=== PATIENT | male | born 1975 | race Caucasian/White ===

== ENCOUNTER 2017-07-07 09:45 | Inpatient (IN) | payer OTHER ==
[~2017-07-07] VITALS: Ht 175.3 cm; Wt 69.8 kg
[2017-07-07] VITALS (31 sets, daily range): BP systolic 112–158; BP diastolic 64–93; PULSE 81–116; RESP 9–44; Ht 175.3 cm; Wt 69.8 kg
[~2017-07-07 09:45] MED LIST: CARAS PO; LACT20SO2 PO; LEVE500S8 PO; OMEP40CA6 PO; PANT40TA4 PO; PROP10TA6 PO; RIFA550T4 PO; TRIA0.25 PO
[2017-07-07] MEDS ORDERED: OMEP40CA6 PO (11:38)
[2017-07-07] MEDS ORDERED: LEVE100018 PO (11:39)
[2017-07-07] MEDS ORDERED: ZOLP5TAB PO (11:39)
[2017-07-07] MEDS ORDERED: ATOR10TA65 PO (11:40)
[2017-07-07] MEDS ORDERED: CARAS PO (11:44)
--- NOTE | 2017-07-07 14:08 | HPN ---
Date/Time of Note Date/Time of Note DATE: 07/07/17 TIME: 14:06 Interval H&P Admission Note Pt. seen H&P reviewed: No system changes Neurosurgery Preop Note No significant change Extensive d/w patient about all available options including surgery vs no surgery. Overall risk/complications (3-5%) including but not limited to pneumothorax discussed. Pt Agrees to proceed with T12, L1, L2, L4 Spinoplasty. Dispo: ICU post op REBEKAH SOMMER MD Jul 07, 2017 14:08
[2017-07-07] MEDS ORDERED: MIDAZOLAM 1 MG/ML 2 ML INJ ONE (14:15)
[2017-07-07] MEDS ORDERED: PHENYLephrine (100 MCG/ML) 5ML SYG ONE (15:04)
[2017-07-07] MEDS ORDERED: ROPIVACAINE 0.5 % 30 ML VIAL ONE (15:48)
[2017-07-07] MEDS ORDERED: POLYMYXIN/BACITRACIN 1L IRRIG ONE (15:49)
[2017-07-07] MEDS ORDERED: NEOSTIGMINE 3 MG/3 ML SYRINGE ONE (17:30)
[2017-07-07] MEDS ORDERED: LIDOCAINE 2% (SDV) 5 ML INJ ONE (17:30)
[2017-07-07] MEDS ORDERED: GLYCOPYRROLATE 1 MG INJ ONE (17:30)
[2017-07-07] MEDS ORDERED: PROPOFOL 20 ML ONE (17:30)
[2017-07-07] MEDS ORDERED: ROCURONIUM 50 MG INJ ONE (17:30)
[2017-07-07] MEDS ORDERED: ONDANSETRON 4 MG INJ ONE (17:31)
--- NOTE | 2017-07-07 17:33 | OPPN ---
Date/Time of Note Date/Time of Note DATE: 07/07/17 TIME: 17:31 Operative Report Preoperative Diagnosis T12, L1, L2, L4 compression fx Postoperative Diagnosis same Operation/Procedure Performed T12, L1, L2, L4 Spinoplasty Surgeon see signature line assistant project manager EMMIE Holland, MSN, ACNP-Bc Anesthesia: general Estimated blood loss: 50 - 100 ml's Transfusion Required none Specimen T12, L1, L2, L4 Bone Biopsy Grafts/Implants none Complications none REBEKAH SOMMER MD Jul 07, 2017 17:33
--- NOTE | 2017-07-07 17:33 | OPPN ---
Date/Time of Note Date/Time of Note DATE: 07/07/17 TIME: 17:31 Operative Report Preoperative Diagnosis T12, L1, L2, L4 compression fx Postoperative Diagnosis same Operation/Procedure Performed T12, L1, L2, L4 Spinoplasty Surgeon see signature line librarian assistant EMMIE Holland, MSN, ACNP-Bc Anesthesia: general Estimated blood loss: 50 - 100 ml's Transfusion Required none Specimen T12, L1, L2, L4 Bone Biopsy Grafts/Implants none Complications none REBEKAH SOMMER MD Jul 07, 2017 17:33
--- NOTE | 2017-07-07 17:33 | OPPN ---
Date/Time of Note Date/Time of Note DATE: 07/07/17 TIME: 17:31 Operative Report Preoperative Diagnosis T12, L1, L2, L4 compression fx Postoperative Diagnosis same Operation/Procedure Performed T12, L1, L2, L4 Spinoplasty Surgeon see signature line benefits assistant EMMIE Holland, MSN, ACNP-Bc Anesthesia: general Estimated blood loss: 50 - 100 ml's Transfusion Required none Specimen T12, L1, L2, L4 Bone Biopsy Grafts/Implants none Complications none REBEKAH SOMMER MD Jul 07, 2017 17:33
[2017-07-07] MEDS ORDERED: METOCLOPRAMIDE 10 MG INJ ONE (17:46)
[2017-07-07] MEDS ORDERED: morphine 10 MG INJ ONE (17:47)
[2017-07-07] MEDS ORDERED: LORAZEPAM 2 MG INJ IV PRN (18:00)
[2017-07-07] MEDS ORDERED: FENTAnyl 50 MCG/ML VIAL IV PRN (18:00)
[2017-07-07] MEDS: DOCUSATE SODIUM 100 MG CAP PO SCH ×2 (18:00→21:00)
[2017-07-07] MEDS ORDERED: NACL 0.9% 3 ML SYG IV SCH (18:00)
[2017-07-07] MEDS ORDERED: DIPHENHYDRAMINE 50 MG INJ IV PRN (18:00)
[2017-07-07] MEDS ORDERED: METOCLOPRAMIDE 10 MG INJ IV PRN (18:00)
[2017-07-07] MEDS ORDERED: MEPERIDINE 25 MG INJ IV PRN (18:00)
[2017-07-07] MEDS ORDERED: ONDANSETRON 4 MG INJ IV PRN (18:00)
[2017-07-07] MEDS ORDERED: MIDAZOLAM 1 MG/ML 2 ML INJ IV PRN (18:00)
[2017-07-07] MEDS ORDERED: NALOXONE (0.4 MG/ML) INJ IV PRN (18:00)
[2017-07-07] MEDS ORDERED: morphine (1 MG/ML) 10ML SYRINGE IV PRN ×2 (18:00)
[2017-07-07] MEDS: NS + KCL 20 MEQ 1,000 ML IV SCH (19:11)
[2017-07-07] MEDS: HYDROmorphONE 0.5 MG/0.5 ML SYG IV PRN (20:16)
--- NOTE | 2017-07-07 20:28 | PN ---
Date/Time of Note Date/Time of Note DATE: 07/07/17 TIME: 20:16 Assessment/Plan VTE Prophylaxis VTE Prophylaxis Intervention: SCD's Lines/Catheters IV Catheter Type (from Nrsg): A Line Urinary Cath still in place: Yes Assessment/Plan Assessment/Plan - SP T12, L1, L2, L4 Spinoplasty. - per neurosx - T12, L1, L2, L4 compression fx -Epilepsy - Seizure precautions -Former smoker - reinforce smoking cessation pLAN - ADMIT TO ICU - Per NEURO Surgery - Keppra 100 mg IVPB Q 12 hrs - Protonix - Dilaudid for pain - [place] for breakthrough pain - SCD - will resume Atorvastatin tomorrow. Paln of care dw Dr Klein/atff Subjective 24 Hr Interval Summary Constitutional: requiring IVF, requiring O2 Respiratory: no complaints Cardiovascular: no complaints Gastrointestinal: no complaints Genitourinary: no complaints Musculoskeletal: back pain Skin: no complaints Exam/Review of Systems Vital Signs Vitals Vital Signs Date Time Temp Pulse Resp B/P Pulse Ox O2 Delivery O2 Flow Rate FiO2 07/07/17 19:20 103 17 123/80 88 Room Air 07/07/17 18:05 98.2 Exam Constitutional: alert, well developed Psych: nl mood/affect Respiratory: diminished breath sounds, normal air movement Cardiovascular: nl pulses, other (s1ss2) Gastrointestinal: non-tender, soft Musculoskeletal: nl extremities to inspection Extremities: normal pulses Neurological: nl speech Results Result Diagram: 07/07/17184507/07/171845 Results 24 hrs Laboratory Tests Test 07/07/17 18:46 White Blood Count 5.1 # Red Blood Count 3.36 L Hemoglobin 12.3 L Hematocrit 34.0 L Mean Corpuscular Volume 101.2 H Mean Corpuscular Hemoglobin 36.6 H Mean Corpuscular Hemoglobin Concent 36.2 Red Cell Distribution Width 13.2 Platelet Count 95 L Mean Platelet Volume 9.2 Neutrophils % Segmented Neutrophils % (Manual) 62 Band Neutrophils % (Manual) 1 Lymphocytes % Lymphocytes % (Manual) 29 Monocytes % Monocytes % (Manual) 6 Eosinophils % Basophils % Basophils % (Manual) 2 Nucleated Red Blood Cells % 0.0 Neutrophils # Neutrophils # (Manual) 3.2 Band Neutrophils # 0.0 Absolute Lymphocytes (Manual) 1.4 Lymphocytes # Monocytes # Absolute Monocytes (Manual) 0.3 Eosinophils # Basophils # Basophils # (Manual) 0.1 H Nucleated Red Blood Cells # Platelet Estimate DECREASED Giant Platelets 1 H Prothrombin Time 14.9 H Prothrombin Time Ratio 1.2 INR International Normalized Ratio 1.16 Sodium Level 139 Potassium Level 3.3 L Chloride Level 100 Carbon Dioxide Level 21 Anion Gap 21 H Blood Urea Nitrogen 3 L Creatinine 0.48 L Glucose Level 103 Calcium Level 8.2 L Medications Medications Current Medications Acetaminophen/ Hydrocodone Bitart 2 tab 2 tab Q4H PRN PO PAIN LEVEL 6-10; Start 07/07/17 at 18:00 Cefazolin Sodium/ Dextrose (Ancef 2 Gm/50 ml (Pmx)) 100 ml @ 100 mls/hr Q8 IVPB ; Start 07/07/17 at 22:00; Stop 07/08/17 at 14:59 Docusate Sodium (Colace) 100 mg BID PO ; Start 07/07/17 at 18:00 Naloxone HCl (Narcan) 0.2 mg Q2M PRN IV RR 8 BREATHS/MIN OR LESS; Start at 18:00 Hydromorphone HCl 1 mg 1 mg Q4H PRN IV pain; Start 07/07/17 at 18:00 Potassium Chloride/Sodium Chloride (NS-KCl 20 Meq) 1,000 ml @ 100 mls/hr Q10H IV Last administered on 07/07/17t 19:11; Admin Dose 100 MLS/HR; Start at 18:00 JADEN MALLOY Jul 07, 2017 20:27
[2017-07-07] MEDS ORDERED: ACETAMINOPHEN 325 MG TAB PO PRN (20:30)
[2017-07-07] MEDS: LEVETIRACETAM 1000 MG (PMX) 100 ML IVPB SCH (21:18)
[2017-07-07] MEDS: ONDANSETRON 4 MG INJ IV PRN (21:42)
[2017-07-07] MEDS: CEFAZOLIN 2 GM/50 ML (PMX) 100 ML IVPB SCH (22:32)
[2017-07-08] VITALS (24 sets, daily range): BP systolic 111–180; BP diastolic 66–108; PULSE 88–111; RESP 11–35
[2017-07-08] MEDS ORDERED: ONDANSETRON INJ 8 MG in DEXTROSE 5% 50 ML IV PRN (00:30)
[2017-07-08] MEDS: METOCLOPRAMIDE 10 MG INJ IV SCH ×2 (00:36→06:00)
[2017-07-08] MEDS: HYDROmorphONE 0.5 MG/0.5 ML SYG IV PRN ×3 (00:47→12:38)
[2017-07-08] MEDS: SUCRALFATE (100 MG/ML) 10ML CUP PO SCH ×4 (01:36→17:54)
[2017-07-08] MEDS: HYDROCODONE/APAP (5/325) TAB PO PRN ×3 (01:38→19:38)
--- NOTE | 2017-07-08 03:43 | RADRPT ---
PROCEDURE: CT Chest without contrast. CLINICAL INDICATION: Chest pain. Suspected pneumothorax. TECHNIQUE: Spiral CT images through the chest without contrast. Coronal and sagittal reformatted images were obtained from the axial source images. The total exam CTDI equals 11.63 mGy and the tota l exam DLP equals 46.05 mGy-cm. One or more of the following dose reduction techniques were used: au tomated exposure control, adjustment of the mA and/or kV according to patient size, or use of iterat roseann reconstruction technique. COMPARISON: Chest x-ray from 2015 FINDINGS: Minimal dependent atelectasis of the lungs is seen. No definite pleural or pericardial effusion. N o pneumothorax. No pulmonary nodules are seen. No hilar or mediastinal adenopathy is seen. Trace ao rtic calcification. Small hiatal hernia.. The more proximal esophagus is slightly fluid - filled. Di ffuse hepatic steatosis. The liver is micronodular in contour which could also be due to a degree of cirrhosis. Prominent atherosclerotic vascular calcification is seen in the upper abdomen. The gallb ladder is distended with multiple small stones seen. There is at least 1 small stone in the distal c ommon bile duct. No biliary or pancreatic ductal dilatation is seen. Limited imaging of the remainde r of the upper abdomen is unremarkable. There are degenerative changes throughout the spine. Separat e CT of the lumbar spine was performed the same day. Cement is seen from prior T12-L2 vertebroplasty . There are also mild compression fractures of T8-T10 and mild superior endplate fractures of T3 -T5, all age indeterminate. IMPRESSION: No evidence for pneumothorax. Probable cirrhosis. Multiple small gallstones with at least 1 stone in the common bile duct. No defi nite biliary ductal dilatation. Degenerative change of the spine with multiple predominately age indeterminate compression fractures . There has been prior vertebroplasty of the T12-L2 fractures. RPTAT: [facility] Physician Kirit Date Time Electronically viewed and signed by Briseida Bermeo Physician on 07/08/2017 03:42 ZOILA/
--- NOTE | 2017-07-08 03:44 | RADRPT ---
PROCEDURE: Intraoperative fluoroscopy CLINICAL INDICATION: T12-L4 SPINOPLASTY OR #4 TECHNIQUE: 170.1 seconds of fluoroscopy time was used during spinal procedure COMPARISON: None FINDINGS: 8 fluoroscopic images are submitted and show localization at various levels with thoracolumbar compr ession fractures seen. IMPRESSION: Intraoperative fluoroscopy during spinal procedure. RPTAT: [facility] Briseida Bermeo Physician Date Time Electronically viewed and signed by Briseida Bermeo Physician on 07/08/2017 03:44 ZOILA/
--- NOTE | 2017-07-08 03:55 | RADRPT ---
PROCEDURE: CT L-Spine. CLINICAL INDICATION: Back pain. Evaluate for pneumothorax after spinal procedure. TECHNIQUE: Section spiral CT images through the lumbar spine without contrast. Multiplanar recons tructions. .The CTDIvol is 17.35 mGy and the DLP is 610.97 mGycm. One or more of the following dos e reduction techniques were used: automated exposure control, adjustment of the mA and/or kV accordi ng to patient size, or use of iterative reconstruction technique. COMPARISON: None FINDINGS: Alignment is anatomic. Cement is seen within the vertebral body compression fractures from T12-L2 as well as L4. Minimal cement is seen in the L1-2 disc space. No gross cement extravasation is seen. M ild superior endplate compression of T11 is seen. There is a mild superior endplate compression frac ture of T12. Small hiatal hernia. Hepatic steatosis. Small stone in the distal common bile duct. Fol ey catheter is seen in the urinary bladder. T12-L1: The disk is normal in height. Mild retropulsion of the superior aspect of T12. There is not severe stenosis.. L1-2: The disk is normal in height. Mild retropulsion of the superior aspect of L1. There is not se arron spinal stenosis.. L2-3: The disk is normal in height. No disc protrusion or extrusion is seen. No significant spinal canal stenosis.. Slight left greater than right foraminal narrowing. L3-4: The disk is normal in height. Minimal posterior disc bulge. Slight left greater than right for aminal narrowing.. L4-5: The disk is normal in height. Small diffuse disc bulge. Moderate bilateral foraminal narrowin g.. L5-S1: The disk is normal in height. Moderate diffuse disc bulge. Moderate bilateral foraminal narro wing.. IMPRESSION: Cement from prior vertebroplasty from T12-L2 as well as L4. Other mild endplate compression fracture s as described. No evidence for significant cement extravasation. Minimal cement within the L1-2 dis c space. Multilevel mild disc pathology as described with mild bilateral foraminal narrowing. RPTAT: [facility] Briseida Bermeo, Physician Date Time Electronically viewed and signed by Briseida Bermeo, Physician on 07/08/2017 03:55 LE/
[2017-07-08] MEDS: ONDANSETRON 4 MG INJ IV PRN (04:17)
[2017-07-08] MEDS ORDERED: PANTOPRAZOLE 40 MG INJ IV SCH (06:00)
[2017-07-08] MEDS: CEFAZOLIN 2 GM/50 ML (PMX) 100 ML IVPB SCH ×2 (06:06→14:10)
[2017-07-08] MEDS ORDERED: METOCLOPRAMIDE 10 MG INJ IV PRN (07:39)
[2017-07-08] MEDS: NS + KCL 20 MEQ 1,000 ML IV SCH (08:17)
[2017-07-08] MEDS: DOCUSATE SODIUM 100 MG CAP PO SCH (09:56)
[2017-07-08] MEDS: LEVETIRACETAM 1000 MG (PMX) 100 ML IVPB SCH (09:56)
--- NOTE | 2017-07-08 12:19 | PN ---
Date/Time of Note Date/Time of Note DATE: 07/08/17 TIME: 12:06 Assessment/Plan VTE Prophylaxis VTE Prophylaxis Intervention: SCD's Lines/Catheters IV Catheter Type (from Nrsg): A Line Urinary Cath still in place: Yes Reason Cath still needed: urinary retention Assessment/Plan Chief Complaint/Hosp Course Patient looks anxious, nonbloody emesis 2. No fever. Continue Reglan per for nausea and Dilaudid for pain. Change IV fluids to D5 one half normal saline + 20 KCl if patient continues to have nausea and will not be able to tolerate diet. Problems: Assessment/Plan -T12, L1, L2, L4 compression fx. S/p T12, L1, L2, L4 Spinoplasty by Dr Mosley on 07/07. -Seizure disorder, continue Keppra -Anxiety, Ativan as needed Further recommendations based on clinical course. Plan of care discussed with Dr. Klein. Exam/Review of Systems Vital Signs Vitals Vital Signs Date Time Temp Pulse Resp B/P Pulse Ox O2 Delivery O2 Flow Rate FiO2 07/08/17 09:00 99 21 154/108 95 Room Air 07/08/17 08:00 98.2 Intake and Output 07/07/17 07/07/17 07/08/17 15:00 23:00 07:00 Intake Total 750 ml 1030 ml Output Total 2550 ml 1375 ml Balance -1800 ml -345 ml Exam Constitutional: alert, oriented Head: normocephalic Neck: supple Respiratory: normal air movement Cardiovascular: nl pulses Gastrointestinal: non-tender, soft Musculoskeletal: nl extremities to inspection, other (Status post surgery, ) Extremities: normal pulses Neurological: nl mental status Skin: nl turgor Results Result Diagram: 07/08/17 0450 07/08/17 0450 Results 24 hrs Laboratory Tests Test 07/07/17 18:46 07/08/17 04:50 White Blood Count 5.1 # 7.2 # Red Blood Count 3.36 L 3.34 L Hemoglobin 12.3 L 11.6 L Hematocrit 34.0 L 34.1 L Mean Corpuscular Volume 101.2 H 102.1 H Mean Corpuscular Hemoglobin 36.6 H 34.7 H Mean Corpuscular Hemoglobin Concent 36.2 34.0 Red Cell Distribution Width 13.2 13.4 Platelet Count 95 L 89 L Mean Platelet Volume 9.2 10.3 Neutrophils % 82.8 H Segmented Neutrophils % (Manual) 62 Band Neutrophils % (Manual) 1 Lymphocytes % 5.0 L Lymphocytes % (Manual) 29 Monocytes % 11.3 H Monocytes % (Manual) 6 Eosinophils % 0.0 Basophils % 0.6 Basophils % (Manual) 2 Nucleated Red Blood Cells % 0.0 0.0 Neutrophils # 6.0 Neutrophils # (Manual) 3.2 Band Neutrophils # 0.0 Absolute Lymphocytes (Manual) 1.4 Lymphocytes # 0.4 L Monocytes # 0.8 Absolute Monocytes (Manual) 0.3 Eosinophils # 0.0 Basophils # 0.0 Basophils # (Manual) 0.1 H Nucleated Red Blood Cells # 0.0 Platelet Estimate DECREASED Giant Platelets 1 H Prothrombin Time 14.9 H Prothrombin Time Ratio 1.2 INR International Normalized Ratio 1.16 Sodium Level 139 138 Potassium Level 3.3 L 3.4 L Chloride Level 100 98 Carbon Dioxide Level 21 31 # Anion Gap 21 H 12 # Blood Urea Nitrogen 3 L 3 L Creatinine 0.48 L 0.49 L Glucose Level 103 130 Calcium Level 8.2 L 8.4 Total Bilirubin 1.0 Direct Bilirubin 0.00 Indirect Bilirubin 1.0 Aspartate Amino Transf (AST/SGOT) 87 H Alanine Aminotransferase (ALT/SGPT) 56 Alkaline Phosphatase 78 Total Protein 7.5 Albumin 4.1 Globulin 3.40 H Albumin/Globulin Ratio 1.20 Medications Medications Current Medications Acetaminophen/ Hydrocodone Bitart 2 tab 2 tab Q4H PRN PO PAIN LEVEL 6-10 Last administered on 07/08/17 06:07; Admin Dose 2 TAB; Start 07/07/17 at 18:00 Cefazolin Sodium/ Dextrose (Ancef 2 Gm/50 ml (Pmx)) 100 ml @ 100 mls/hr Q8 IVPB Last administered on 07/08/17 06:06; Admin Dose 100 MLS/HR; Start 07/07 at 22:00; Stop 07/08/17 at 14:59 Docusate Sodium (Colace) 100 mg BID PO Last administered on 07/08/17 09:56; Admin Dose 100 MG; Start 07/07/17 at 18:00 Naloxone HCl (Narcan) 0.2 mg Q2M PRN IV RR 8 BREATHS/MIN OR LESS; Start at 18:00 Hydromorphone HCl 1 mg 1 mg Q4H PRN IV pain Last administered on 07/08/17 04: 23; Admin Dose 1 MG; Start 07/07/17 at 18:00 Potassium Chloride/Sodium Chloride 1,000 ml @ 100 mls/hr Q10H IV Last administered on 07/08/17 08:17; Admin Dose 100 MLS/HR; Start 07/07/17 at 18: 00 Levetiracetam (Keppra 1,000mg/ 100ml (Pmx)) 100 ml @ 400 mls/hr Q12 IVPB Last administered on 07/08/17 09:56; Admin Dose 400 MLS/HR; Start 07/07/17 at 21: 30 Pantoprazole (Protonix Iv) 40 mg DAILY@06 IV Last administered on 07/08/17 06 :06; Admin Dose 40 MG; Start 07/08/17 at 06:00 Acetaminophen (Tylenol Tab) 650 mg Q6H PRN PO PAIN AND OR ELEVATED TEMP; Start 07/07/17 at 20:30 Ondansetron HCl (Zofran Inj) 4 mg Q6H PRN IV NAUSEA AND/OR VOMITING Last administered on 07/08/17 04:17; Admin Dose 4 MG; Start 07/07/17 at 20:30 Sucralfate 1 gm 1 gm QID PO Last administered on 07/08/17 09:56; Admin Dose 1 GM; Start 07/07/17 at 23:00 Ondansetron HCl/ Dextrose (Zofran Inj/D5W) 54 ml @ 108 mls/hr Q6H PRN IV NAUSEA AND/OR VOMITING Last administered on 07/08/17 09:10; Admin Dose 108 MLS /HR; Start 07/08/17 at 00:30 Metoclopramide HCl (Reglan) 10 mg Q6H PRN IV NAUSEA AND/OR VOMITING; Start at 07:39 RAJESH SZYMANSKI Jul 08, 2017 12:17
[2017-07-08] MEDS ORDERED: D5-NS + KCL 20 MEQ 1,000 ML IV SCH (12:30)
[2017-07-08] MEDS ORDERED: LORAZEPAM 2 MG INJ IV PRN (12:30)
--- NOTE | 2017-07-08 14:27 | PN ---
Date/Time of Note Date/Time of Note DATE: 07/08/17 TIME: 14:27 Assessment/Plan VTE Prophylaxis VTE Prophylaxis Intervention: ambulation, SCD's Lines/Catheters IV Catheter Type (from Nrsg): A Line Central line still needed: No Urinary Cath still in place: No Assessment/Plan Assessment/Plan Impression s/p T12, L1, L2, L4 Spinoplasty. POD #[address] appear stable with good placement Overall symptoms improved by 50-60% Pt ambulating well with pt/ot plan dc planning in am okay with NS pt/ot with TLSO brace for comfort IS x 10 PRN zofran for n/v follow up in 2 weeks okay to shower Tuesday Subjective 24 Hr Interval Summary Subjective hx not possible: other (S: s/p 4 level Spinoplasty with no complaints of SOB. POD#1) Exam/Review of Systems Vital Signs Vitals Vital Signs Date Time Temp Pulse Resp B/P Pulse Ox O2 Delivery O2 Flow Rate FiO2 07/08/17 13:00 91 17 149/97 91 Room Air 07/08/17 12:00 98.6 Intake and Output 07/07/17 07/07/17 07/08/17 15:00 23:00 07:00 Intake Total 2050 ml 1030 ml Output Total 2550 ml 1375 ml Balance -500 ml -345 ml Exam Constitutional: alert Neurological: other (MS: AAOX4 CN: III-XII intact M: FC x 4, no focal deficits S: Grossly intact Surgical Drsg: Intact and dry) Results Result Diagram: 07/08/17 0450 07/08/17 0450 Results 24 hrs Laboratory Tests Test 07/07/17 18:46 07/08/17 04:50 White Blood Count 5.1 # 7.2 # Red Blood Count 3.36 L 3.34 L Hemoglobin 12.3 L 11.6 L Hematocrit 34.0 L 34.1 L Mean Corpuscular Volume 101.2 H 102.1 H Mean Corpuscular Hemoglobin 36.6 H 34.7 H Mean Corpuscular Hemoglobin Concent 36.2 34.0 Red Cell Distribution Width 13.2 13.4 Platelet Count 95 L 89 L Mean Platelet Volume 9.2 10.3 Neutrophils % 82.8 H Segmented Neutrophils % (Manual) 62 Band Neutrophils % (Manual) 1 Lymphocytes % 5.0 L Lymphocytes % (Manual) 29 Monocytes % 11.3 H Monocytes % (Manual) 6 Eosinophils % 0.0 Basophils % 0.6 Basophils % (Manual) 2 Nucleated Red Blood Cells % 0.0 0.0 Neutrophils # 6.0 Neutrophils # (Manual) 3.2 Band Neutrophils # 0.0 Absolute Lymphocytes (Manual) 1.4 Lymphocytes # 0.4 L Monocytes # 0.8 Absolute Monocytes (Manual) 0.3 Eosinophils # 0.0 Basophils # 0.0 Basophils # (Manual) 0.1 H Nucleated Red Blood Cells # 0.0 Platelet Estimate DECREASED Giant Platelets 1 H Prothrombin Time 14.9 H Prothrombin Time Ratio 1.2 INR International Normalized Ratio 1.16 Sodium Level 139 138 Potassium Level 3.3 L 3.4 L Chloride Level 100 98 Carbon Dioxide Level 21 31 # Anion Gap 21 H 12 # Blood Urea Nitrogen 3 L 3 L Creatinine 0.48 L 0.49 L Glucose Level 103 130 Calcium Level 8.2 L 8.4 Total Bilirubin 1.0 Direct Bilirubin 0.00 Indirect Bilirubin 1.0 Aspartate Amino Transf (AST/SGOT) 87 H Alanine Aminotransferase (ALT/SGPT) 56 Alkaline Phosphatase 78 Total Protein 7.5 Albumin 4.1 Globulin 3.40 H Albumin/Globulin Ratio 1.20 Medications Medications Current Medications Acetaminophen/ Hydrocodone Bitart 2 tab 2 tab Q4H PRN PO PAIN LEVEL 6-10 Last administered on 07/08/17 06:07; Admin Dose 2 TAB; Start 07/07/17 at 18:00 Cefazolin Sodium/ Dextrose (Ancef 2 Gm/50 ml (Pmx)) 100 ml @ 100 mls/hr Q8 IVPB Last administered on 07/08/17 14:10; Admin Dose 100 MLS/HR; Start 07/07 at 22:00; Stop 07/08/17 at 14:59 Docusate Sodium (Colace) 100 mg BID PO Last administered on 07/08/17 09:56; Admin Dose 100 MG; Start 07/07/17 at 18:00 Naloxone HCl (Narcan) 0.2 mg Q2M PRN IV RR 8 BREATHS/MIN OR LESS; Start at 18:00 Hydromorphone HCl 1 mg 1 mg Q4H PRN IV pain Last administered on 07/08/17 12: 38; Admin Dose 1 MG; Start 07/07/17 at 18:00 Levetiracetam (Keppra 1,000mg/ 100ml (Pmx)) 100 ml @ 400 mls/hr Q12 IVPB Last administered on 07/08/17 09:56; Admin Dose 400 MLS/HR; Start 07/07/17 at 21: 30 Pantoprazole (Protonix Iv) 40 mg DAILY@06 IV Last administered on 07/08/17 06 :06; Admin Dose 40 MG; Start 07/08/17 at 06:00 Acetaminophen (Tylenol Tab) 650 mg Q6H PRN PO PAIN AND OR ELEVATED TEMP; Start 07/07/17 at 20:30 Ondansetron HCl (Zofran Inj) 4 mg Q6H PRN IV NAUSEA AND/OR VOMITING Last administered on 07/08/17 04:17; Admin Dose 4 MG; Start 07/07/17 at 20:30 Sucralfate 1 gm 1 gm QID PO Last administered on 07/08/17 09:56; Admin Dose 1 GM; Start 07/07/17 at 23:00 Ondansetron HCl/ Dextrose (Zofran Inj/D5W) 54 ml @ 108 mls/hr Q6H PRN IV NAUSEA AND/OR VOMITING Last administered on 07/08/17 09:10; Admin Dose 108 MLS /HR; Start 07/08/17 at 00:30 Metoclopramide HCl 10 mg 10 mg Q6H PRN IV NAUSEA AND/OR VOMITING; Start at 07:39 Potassium Chloride/Dextrose/ Sod Cl (D5-NS + KCl 20 Meq) 1,000 ml @ 80 mls/hr [id number] IV Last administered on 07/08/17 13:23; Admin Dose 80 MLS/HR; Start 07/08/17 at 12:30 Lorazepam (Ativan) 0.5 mg Q6H PRN IV ANXIETY Last administered on 07/08/17 12 :37; Admin Dose 0.5 MG; Start 07/08/17 at 12:30 REBEKAH SOMMER MD Jul 08, 2017 14:27
[2017-07-08] MEDS ORDERED: HYDR-3498 PO (19:20)
[2017-07-09] MEDS ORDERED: FAMOTIDINE 20 MG INJ IV SCH (09:00)
== END 2017-07-08 19:30 | disposition home or self-care (01) | DRG 479 ==
LOC: REC 11:12 → ICU 18:00 → MS1 07-08 14:15
PROVIDERS: ADMIT Neurological Surgery; ATTEND Neurological Surgery
PROC: 0QB03ZX Excision of Lumbar Vertebra, Percutaneous Approach, Diagnostic (ICD-10-PCS; 2017-07-07)
PROC: 0PU43JZ Supplement Thoracic Vertebra with Synthetic Substitute, Percutaneous Approach (ICD-10-PCS; 2017-07-07)
PROC: 0QS03ZZ Reposition Lumbar Vertebra, Percutaneous Approach (ICD-10-PCS; 2017-07-07)
PROC: 0QU03JZ Supplement Lumbar Vertebra with Synthetic Substitute, Percutaneous Approach (ICD-10-PCS; 2017-07-07)
PROC: 0PB43ZX Excision of Thoracic Vertebra, Percutaneous Approach, Diagnostic (ICD-10-PCS; 2017-07-07)
PROC: 0PS43ZZ Reposition Thoracic Vertebra, Percutaneous Approach (ICD-10-PCS; principal; 2017-07-07 13:30)
DX: M48.54XA Collapsed vertebra, not elsewhere classified, thoracic region, initial encounter for fracture (principal); F17.200 Nicotine dependence, unspecified, uncomplicated; M48.56XA Collapsed vertebra, not elsewhere classified, lumbar region, initial encounter for fracture; G40.909 Epilepsy, unspecified, not intractable, without status epilepticus; R11.2 Nausea with vomiting, unspecified
CPT/HCPCS: 71250; 72114; 72131; 80048; 80053; 85025; 85610; 86850; 86900; 86901; 87081; 88304; 88311; 97161; C9113; J0690; J1953; J2060; J2250; J2270; J2370; J2405; J2710; J2765; J2795; J3010; J3480; L0462

== ENCOUNTER 2018-09-19 14:36 | Emergency (ER) | payer OTHER ==
[~2018-09-19] VITALS: Ht 167.6 cm; Wt 68.0 kg
[~2018-09-19 14:36] MED LIST changes: +ATOR10TA65 PO; +HYDR-3601 PO; -LACT20SO2 PO; +LEVE100018 PO; -LEVE500S8 PO; -PANT40TA4 PO; -PROP10TA6 PO; -RIFA550T4 PO; -TRIA0.25 PO; +ZOLP5TAB PO
[2018-09-19 14:42] VITALS: Ht 167.6 cm; Wt 68.0 kg
[2018-09-19] MEDS ORDERED: PANTOPRAZOLE IV 80 MG in SOD CHLORIDE 0.9% 100 ML IVPB STA (17:13)
[2018-09-19] MEDS ORDERED: PANTOPRAZOLE IV 80 MG in SOD CHLORIDE 0.9% 100 ML IV STA (17:13)
[2018-09-19] MEDS ORDERED: SOD CHLORIDE 0.9% 1,000 ML IV STA (17:13)
[2018-09-19] MEDS ORDERED: ONDANSETRON 4 MG INJ IV STA (17:49)
[2018-09-19] MEDS ORDERED: LORAZEPAM 2 MG INJ IV ONE (18:00)
[2018-09-19] MEDS ORDERED: POTASSIUM CHLORIDE 30 MEQ in SOD CHLORIDE 0.9% 1,000 ML IV SCH (20:30)
--- NOTE | 2018-09-19 21:25 | ERD ---
ER Documentation Chief Complaint Chief Complaint HEMTAEMESIS THIS AM, HISTORY OF SIMILAR EVENT WITH HOSPITALIZATION HPI This is a 43-year-old male alcoholic who says that he has had a history of upper GI bleed in the past due to alcohol abuse and peptic ulcer disease. He is complaining over the past day he has had 5 or 6 episodes of hematemesis that resembles coffee grounds. No melena. No abdominal pain. No dizziness syncope. He said his last alcoholic drink was last night. He is not having any shakes or withdrawal symptoms at this time. ROS All systems reviewed and are negative except as per history of present illness. Medications Home Meds Active Scripts Hydrocodone Bit-Acetaminophen (Hydrocodone Bit-APAP) 5-325MG Tablet, 1 TAB PO Q4H PRN for PAIN LEVEL 6-10, #30 TAB Prov:RAJESH SZYMANSKI 07/08/17 Reported Medications Sucralfate* (Carafate*) 1 Gm/10 Ml Susp, 1 GM PO QID, EA 07/07/17 Atorvastatin Calcium (Atorvastatin Calcium) 10 Mg Tablet, 10 MG PO QHS, #30 TAB 07/07/17 Zolpidem Tartrate* (Ambien*) 5 Mg Tablet, 5 MG PO QHS PRN for INSOMNIA, #30 TAB 07/07/17 Levetiracetam* (Keppra*) 1,000 Mg Tablet, 1000 MG PO BID, TAB 07/07/17 Omeprazole* (Omeprazole*) 40 Mg Capsule.dr, 40 MG PO DAILY, #30 CAP 07/07/17 Allergies Allergies: Coded Allergies: vancomycin (Verified Allergy, Intermediate, generalized rashes, 07/07/17) MD aware PMhx/Soc History of Surgery: Yes (G TUBE LONG TIME AGO) Anesthesia Reaction: No Hx Neurological Disorder: Yes (EPILEPSY) Hx Respiratory Disorders: No Hx Cardiac Disorders: No Hx Psychiatric Problems: No Hx Miscellaneous Medical Probl: Yes (see H&P) Hx Alcohol Use: Yes (10-14 BEERS A DAY) Hx Substance Use: No Hx Tobacco Use: Yes (QUIT 15 YRS AGO) Smoking Status: Never smoker FmHx Family History: No coronary disease Physical Exam Vitals Vital Signs Date Temp Pulse Resp B/P (MAP) Pulse Ox O2 O2 Flow FiO2 Time Delivery Rate 09/19/18 106 17 136/92 95 Room Air 18:30 (107) 09/19/18 109 20 148/79 99 Room Air 18:09 (102) 09/19/18 Nasal 2 17:50 Cannula 09/19/18 98.1 118 18 131/83 94 14:42 (99) Physical Exam Const: Well-developed, well-nourished Head: Atraumatic, normocephalic Eyes: Normal Conjunctiva, PERRLA, EOMI, normal sclera, no nystagmus ENT: Normal External Ears, Nose and Mouth, moist mucus membranes. Neck: Full range of motion. No meningismus, no lymphadenopathy. Resp: Clear to auscultation bilaterally, no wheezing, rhonchi, rales Cardio: Regular rate and rhythm, no murmurs, S1 S2 present Abd: Soft, non tender x 4, non distended. Normal bowel sounds, no guarding or rebound, no pulsitile abdominal masses or bruits Skin: No petechiae or rashes, no ecchymosis , no maculopapular rash Back: No midline or flank tenderness Ext: No cyanosis, or edema, FROM x 4, normal inspection, neurovascularly intact x 4 Neur: Awake and alert, STR 5/5 x 4, sensation intact x 4, no focal findings, cerebellum intact Psych: Normal Mood and Affect Result Diagram: 09/19/18 1715 09/19/18 1715 Results 24 hrs Laboratory Tests Test 09/19/18 17:15 White Blood Count 10.1 10^3/ul Red Blood Count 4.08 10^6/ul Hemoglobin 14.9 g/dl Hematocrit 42.3 % Mean Corpuscular Volume 103.7 fl Mean Corpuscular Hemoglobin 36.5 pg Mean Corpuscular Hemoglobin Concent 35.2 g/dl Red Cell Distribution Width 14.6 % Platelet Count 144 10^3/UL Mean Platelet Volume 9.6 fl Immature Granulocytes % 0.500 % Neutrophils % 83.1 % Lymphocytes % 7.6 % Monocytes % 7.6 % Eosinophils % 0.0 % Basophils % 1.2 % Nucleated Red Blood Cells % 0.0 /100WBC Immature Granulocytes # 0.050 10^3/ul Neutrophils # 8.4 10^3/ul Lymphocytes # 0.8 10^3/ul Monocytes # 0.8 10^3/ul Eosinophils # 0.0 10^3/ul Basophils # 0.1 10^3/ul Nucleated Red Blood Cells # 0.0 10^3/ul Prothrombin Time 15.5 Sec Prothrombin Time Ratio 1.2 INR International Normalized Ratio 1.22 Activated Partial Thromboplast Time 32.0 Sec Sodium Level 140 mmol/L Potassium Level 3.0 mmol/L Chloride Level 89 mmol/L Carbon Dioxide Level 31 mmol/L Anion Gap 20 Blood Urea Nitrogen 3 mg/dl Creatinine 0.43 mg/dl Est Glomerular Filtrat Rate mL/min > 60 mL/min Glucose Level 125 mg/dl Calcium Level 9.0 mg/dl Total Bilirubin 2.0 mg/dl Direct Bilirubin 0.20 mg/dl Indirect Bilirubin 1.8 mg/dl Aspartate Amino Transf (AST/SGOT) 173 IU/L Alanine Aminotransferase (ALT/SGPT) 37 IU/L Alkaline Phosphatase 222 IU/L Troponin I < 0.012 ng/ml Total Protein 8.0 g/dl Albumin 4.2 g/dl Globulin 3.80 g/dl Albumin/Globulin Ratio 1.10 Lipase 163 U/L Current Medications Medications Dose Sig/Alexandra Start Time Status Last (Trade) Ordered Route PRN Stop Time Admin Dose Reason Admin Sodium 1,000 ml @ Q1H STAT 09/19/18 DC 09/19/18 Chloride 1,000 mls/hr IV 17:13 09/19/18 17:47 18:12 Pantoprazole 100 ml @ ONCE STAT 09/19/18 DC 09/19/18 80 mg/Sodium 400 mls/hr IVPB 17:13 09/19/18 17:44 Chloride 17:27 Pantoprazole 100 ml @ ONCE STAT 09/19/18 09/19/18 80 mg/Sodium 10 mls/hr IV 17:13 09/20/18 17:56 Chloride 03:12 Ondansetron 4 mg ONCE STAT 09/19/18 DC 09/19/18 HCl (Zofran IV 17:49 09/19/18 17:56 Inj) 17:50 Lorazepam 1 mg ONCE ONCE 09/19/18 DC 09/19/18 (Ativan) IV 18:00 09/19/18 17:56 18:01 Potassium 1,015 ml @ Q8H28M IV 09/19/18 Chloride 30 120 mls/hr 20:30 meq/ Sodium Chloride Procedures/MDM The patient was placed on intravenous Protonix drip and bolus. He has a stable hemoglobin of 14.9, has low potassium at 3.0 which was replaced intravenously. Patient is capitated to an outside facility at talk to the physician there and we will transfer the patient for stable upper GI bleed. The patient's vital signs are stable with an adequate hemoglobin and hematocrit. Departure Diagnosis: Primary Impression: Upper GI bleed Additional Impression: Hematemesis Nausea presence: with nausea Qualified Codes: K92.0 - Hematemesis Condition: Stable AKIRA COREAS DO Sep 19, 2018 21:25
[2018-09-19 22:40] VITALS: BP 114/75; PULSE 121; RESP 17
== END 2018-09-19 22:50 | disposition short-term general hospital (02) ==
LOC: E/R 14:36
DX: K92.2 Gastrointestinal hemorrhage, unspecified (principal); R40.2142 Coma scale, eyes open, spontaneous, at arrival to emergency department; R40.2362 Coma scale, best motor response, obeys commands, at arrival to emergency department; R40.2252 Coma scale, best verbal response, oriented, at arrival to emergency department
CPT/HCPCS: 36415; 71045; 80053; 83690; 84484; 85025; 85610; 85730; 86850; 86900; 86901; 96365; 96366; 96368; 96375; 99285; C9113; J2060; J2405; J3480; J7030

== ENCOUNTER 2018-11-22 13:12 | Emergency (ER) | payer OTHER ==
[~2018-11-22] VITALS: Wt 76.5 kg
--- NOTE | 2018-11-22 15:40 | ERD ---
ER Documentation Chief Complaint Chief Complaint bib self, cc: abd. swelling, hx ascites, HPI The patient is a 43-year-old male, presenting to the ER because of recurrent abdominal distention, he had similar symptom a week ago and required abdominal paracentesis at [facility]. He denies fever, chills, neck pain, chest pain, vomiting, dizzy, diarrhea. He does not smoke, used to drink until recently, smokes marijuana Past medical history: Epilepsy, peptic ulcer disease, anxiety, ascites, cirrhosis Past surgical history: T12 L1-L2 L4 spinal plasty, esophageal varices banding ROS All systems reviewed and are negative except as per history of present illness. Medications Home Meds Active Scripts Hydrocodone Bit-Acetaminophen (Hydrocodone Bit-APAP) 5-325MG Tablet, 1 TAB PO Q4H PRN for PAIN LEVEL 6-10, #30 TAB Prov:RAJESH SZYMANSKI 07/08/17 Reported Medications Sucralfate* (Carafate*) 1 Gm/10 Ml Susp, 1 GM PO QID, EA 07/07/17 Atorvastatin Calcium (Atorvastatin Calcium) 10 Mg Tablet, 10 MG PO QHS, #30 TAB 07/07/17 Zolpidem Tartrate* (Ambien*) 5 Mg Tablet, 5 MG PO QHS PRN for INSOMNIA, #30 TAB 07/07/17 Levetiracetam* (Keppra*) 1,000 Mg Tablet, 1000 MG PO BID, TAB 07/07/17 Omeprazole* (Omeprazole*) 40 Mg Capsule.dr, 40 MG PO DAILY, #30 CAP 07/07/17 Allergies Allergies: Coded Allergies: vancomycin (Verified Allergy, Intermediate, generalized rashes, 07/07/17) MD aware PMhx/Soc History of Surgery: Yes (G TUBE LONG TIME AGO) Anesthesia Reaction: No Hx Neurological Disorder: Yes (EPILEPSY) Hx Respiratory Disorders: No Hx Cardiac Disorders: No Hx Psychiatric Problems: No Hx Miscellaneous Medical Probl: Yes (see H&P) Hx Alcohol Use: Yes (10-14 BEERS A DAY) Hx Substance Use: No Hx Tobacco Use: Yes (QUIT 15 YRS AGO) Physical Exam Vitals Vital Signs Date Temp Pulse Resp B/P (MAP) Pulse Ox O2 O2 Flow FiO2 Time Delivery Rate 11/22/18 98.1 79 19 103/61 100 13:15 (75) Physical Exam Const: No acute distress. Head: Atraumatic. Eyes: Normal Conjunctiva. ENT: Normal External Ears, Nose and Mouth. Neck: Full range of motion. No meningismus. Resp: Clear to auscultation bilaterally. Cardio: Regular rate and rhythm. Abd: Soft, mild ascites, normal bowel sounds, non tender. Skin: No petechiae or rashes. Back: No midline or flank tenderness. Ext: No cyanosis, or edema. Neur: Awake and alert. No focal deficit Psych: Normal Mood and Affect. Result Diagram: 11/22/18 1613 11/22/18 1613 Results 24 hrs Laboratory Tests Test 11/22/18 16:13 White Blood Count 6.9 10^3/ul Red Blood Count 3.14 10^6/ul Hemoglobin 11.1 g/dl Hematocrit 31.9 % Mean Corpuscular Volume 101.6 fl Mean Corpuscular Hemoglobin 35.4 pg Mean Corpuscular Hemoglobin Concent 34.8 g/dl Red Cell Distribution Width 15.8 % Platelet Count 124 10^3/UL Mean Platelet Volume 8.8 fl Immature Granulocytes % 0.700 % Neutrophils % % Lymphocytes % % Monocytes % % Eosinophils % % Basophils % % Nucleated Red Blood Cells % 0.0 /100WBC Immature Granulocytes # 0.050 10^3/ul Neutrophils # 10^3/ul Lymphocytes # 10^3/ul Monocytes # 10^3/ul Eosinophils # 10^3/ul Basophils # 10^3/ul Nucleated Red Blood Cells # 10^3/ul Prothrombin Time 17.7 Sec Prothrombin Time Ratio 1.4 INR International Normalized Ratio 1.45 Activated Partial Thromboplast Time 36.7 Sec Sodium Level 131 mmol/L Potassium Level 3.3 mmol/L Chloride Level 97 mmol/L Carbon Dioxide Level 28 mmol/L Anion Gap 6 Blood Urea Nitrogen 8 mg/dl Creatinine 0.48 mg/dl Est Glomerular Filtrat Rate mL/min > 60 mL/min Glucose Level 102 mg/dl Calcium Level 8.3 mg/dl Current Medications Medications Dose Sig/Alexandra Start Time Status Last (Trade) Ordered Route PRN Stop Time Admin Dose Reason Admin Lidocaine 5 ml STK-MED 11/22/18 DC 11/22/18 (Xylocaine ONCE .ROUTE 17:07 17:08 1% (Mpf)) 3/13/19 17:08 Potassium 40 meq ONCE STAT 11/22/18 DC Chloride PO 17:19 (Klor-Con 20) 11/22/18 17:21 Procedures/MDM MEDICAL MAKING DECISION: The patient is a 43-year-old male, presenting with recurrent ascites, acute hypokalemia.. He had abdominocentesis by radiologist that removed about 4 L of ascitic fluid, was treated with potassium chloride 40 mg p.o. for acute hypokalemia with good response, is stable for outpatient follow-up The differential diagnoses considered include but are not limited to SBP, cholelithiasis, cholecystitis, choledocholithiasis, cholangitis, pancreatitis, hepatitis, gastritis, peptic ulcer disease, gastric ulcer, appendicitis, cystit is, diverticulitis, partial small bowel obstruction. Departure Diagnosis: Primary Impression: Ascites Additional Impressions: Hypokalemia Anemia Thrombocytopenia Coagulopathy Condition: Good Comments I discussed the findings with the patient. I advised the patient to follow-up with the primary physician in about 2-3 days, sooner if needed and return if any concern. Disclaimer: Inadvertent spelling and grammatical errors are likely due to EHR/dictation software use and do not reflect on the overall quality of patient care. Also, please note that the electronic time recorded on this note does not necessarily reflect the actual time of the patient encounter. BERNARDINO SAM MD Nov 22, 2018 15:40
[2018-11-22 16:45] VITALS: BP 113/77; PULSE 79; RESP 18
[2018-11-22] MEDS ORDERED: LIDOCAINE 1% (MPF) 5 ML VIAL ONE (17:07)
[2018-11-22 17:10] VITALS: BP 109/74; PULSE 81; RESP 18
[2018-11-22] MEDS ORDERED: POTASSIUM CHLORIDE (SR) 20 MEQ TAB PO STA (17:19)
[2018-11-22 17:42] VITALS: BP 105/71; PULSE 72; RESP 20
== END 2018-11-22 18:16 | disposition home or self-care (01) ==
LOC: E/R 13:12
DX: E87.6 Hypokalemia (principal); R18.8 Other ascites; D64.9 Anemia, unspecified; D69.6 Thrombocytopenia, unspecified; D68.9 Coagulation defect, unspecified; Z87.891 Personal history of nicotine dependence
CPT/HCPCS: 80048; 85025; 85610; 85730

== ENCOUNTER 2018-11-27 12:22 | Emergency (ER) | payer OTHER ==
[~2018-11-27] VITALS: Ht 167.6 cm; Wt 78.2 kg
[2018-11-27 12:55] VITALS: Ht 167.6 cm; Wt 78.2 kg
--- NOTE | 2018-11-27 15:11 | ERD ---
ER Documentation Chief Complaint Chief Complaint recurrent ascites HPI The patient is a 43-year-old male, presenting to the ER because of recurrent abdominal distention for the last couple days. He was seen in the emergency department days ago for similar symptoms and had abdominal paracentesis. He denies fever, chills, neck pain, chest pain, vomiting, dizzy, diarrhea. He does not smoke, used to drink until recently, smokes marijuana Past medical history: Epilepsy, peptic ulcer disease, anxiety, ascites, cirrhosis Past surgical history: T12 L1-L2 L4 spinal plasty, esophageal varices banding ROS All systems reviewed and are negative except as per history of present illness. Medications Home Meds Active Scripts Hydrocodone Bit-Acetaminophen (Hydrocodone Bit-APAP) 5-325MG Tablet, 1 TAB PO Q4H PRN for PAIN LEVEL 6-10, #30 TAB Prov:RAJESH SZYMANSKI 07/08/17 Reported Medications Sucralfate* (Carafate*) 1 Gm/10 Ml Susp, 1 GM PO QID, EA 07/07/17 Atorvastatin Calcium (Atorvastatin Calcium) 10 Mg Tablet, 10 MG PO QHS, #30 TAB 07/07/17 Zolpidem Tartrate* (Ambien*) 5 Mg Tablet, 5 MG PO QHS PRN for INSOMNIA, #30 TAB 07/07/17 Levetiracetam* (Keppra*) 1,000 Mg Tablet, 1000 MG PO BID, TAB 07/07/17 Omeprazole* (Omeprazole*) 40 Mg Capsule.dr, 40 MG PO DAILY, #30 CAP 07/07/17 Allergies Allergies: Coded Allergies: vancomycin (Verified Allergy, Intermediate, generalized rashes, 07/07/17) MD aware PMhx/Soc History of Surgery: Yes (G TUBE LONG TIME AGO) Anesthesia Reaction: No Hx Neurological Disorder: Yes (EPILEPSY) Hx Respiratory Disorders: No Hx Cardiac Disorders: No Hx Psychiatric Problems: No Hx Miscellaneous Medical Probl: Yes (see H&P) Hx Alcohol Use: Yes (10-14 BEERS A DAY) Hx Substance Use: No Hx Tobacco Use: Yes (QUIT 15 YRS AGO) Physical Exam Vitals Vital Signs Date Temp Pulse Resp B/P (MAP) Pulse Ox O2 O2 Flow FiO2 Time Delivery Rate 11/27/18 99.5 105 20 118/72 94 12:55 (87) Physical Exam Const: No acute distress. Head: Atraumatic. Eyes: Normal Conjunctiva. ENT: Normal External Ears, Nose and Mouth. Neck: Full range of motion. No meningismus. Resp: Clear to auscultation bilaterally. Cardio: Regular rate and rhythm. Abd: Soft, distended, normal bowel sounds. Skin: No petechiae or rashes. Back: No midline or flank tenderness. Ext: No cyanosis, or edema. Neur: Awake and alert. No focal deficit Psych: Normal Mood and Affect. Results 24 hrs Current Medications Medications Dose Sig/Alexandra Start Time Status Last (Trade) Ordered Route PRN Stop Time Admin Dose Reason Admin Lidocaine 5 ml STK-MED 11/27/18 DC 11/27/18 (Xylocaine ONCE .ROUTE 16:32 16:50 1% (Mpf)) 11/27/18 16:33 Procedures/[place] [id number] Radiology Main Line: [phone] DIAGNOSTIC IMAGING REPORT Patient: JIMMY CARMONA : 1975 Age: 43 Sex: M MR #: [id number] DOS: 11/27/18 [facility] Ordering MD: BERNARDINO SAM MD Location: E/R Room/Bed: PROCEDURE: Ultrasound guided paracentesis CLINICAL INDICATION: Ascites TECHNIQUE: The risks benefits and alternatives of the procedure were explained to the patient. Informed written consent was obtained. A time out was performed. The patient understood the risks benefits and alternatives and wished to proceed with the procedure. COMPARISON: None available FINDINGS: A time out was performed. The overlying skin of the right lower quadrant of the abdomen was prepped and draped in the usual sterile fashion. Approximately 10 cc of lidocaine was injected locally for pain control. Utilizing ultrasound guidance, a skinny 5-Sinhala Finarioeh catheter was placed into the peritoneal cavity without difficulty. The patient tolerated the procedure well without complication. Approximately 4800 cc of clear yellow fluid was obtained. The fluid was not sent to the lab for further analysis. IMPRESSION: Successful ultrasound-guided paracentesis. RPTAT: QQ rm-alisha Vartanians, Physician Date Time Electronically viewed and signed by Physician Cyrus on 11/27/2018 17:05 rV/ CC: BERNARDINO SAM MD [id number] MEDICAL MAKING DECISION: The patient is a 43-year-old male, presenting with acute recurrent ascites. He had abdominocentesis performed by interventional radiologist that removed about 4.8 L with good response. He is stable for outpatient follow-up The differential diagnoses considered include but are not limited to SBP, cholelithiasis, cholecystitis, choledocholithiasis, cholangitis, pancreatitis, hepatitis, gastritis, peptic ulcer disease, gastric ulcer, appendicitis, cystitis, diverticulitis, partial small bowel obstruction. Departure Diagnosis: Primary Impression: Ascites Condition: Good Comments I discussed the findings with the patient. I advised the patient to follow-up with his office clinician/PMD in about 2-3 days, sooner if needed and return if any concern. Disclaimer: Inadvertent spelling and grammatical errors are likely due to EHR/dictation software use and do not reflect on the overall quality of patient care. Also, please note that the electronic time recorded on this note does not necessarily reflect the actual time of the patient encounter. BERNARDINO SAM MD Nov 27, 2018 15:11
[2018-11-27] MEDS ORDERED: LIDOCAINE 1% (MPF) 5 ML VIAL ONE (16:32)
== END 2018-11-27 17:36 | disposition home or self-care (01) ==
LOC: E/R 12:22
DX: R18.8 Other ascites (principal); Z87.891 Personal history of nicotine dependence

== ENCOUNTER 2018-12-02 10:37 | Emergency (ER) | payer OTHER ==
[~2018-12-02] VITALS: Ht 167.6 cm; Wt 79.4 kg
[2018-12-02 11:06] VITALS: Ht 167.6 cm; Wt 79.4 kg
[2018-12-02] MEDS ORDERED: IBUPROFEN 600 MG TAB PO ONE (14:30)
[2018-12-02] MEDS ORDERED: FURO40TA4 PO (14:48)
[2018-12-02] MEDS ORDERED: SPIR100T4 PO (14:48)
[2018-12-02] MEDS ORDERED: LIDOCAINE 1% (MPF) 5 ML VIAL ONE (16:06)
--- NOTE | 2018-12-02 16:44 | ERD ---
ER Documentation Chief Complaint Chief Complaint abdominal pain here paracentesis HPI 43-year-old male with a history of alcoholic cirrhosis and ascites presenting for the second time this week for abdominal distention. He states that the fluid in his abdomen is pressing against his lungs and causing him difficulty to breathe. The pressure is very uncomfortable. He denies any fevers or chills. No nausea, vomiting, diarrhea. He is scheduled to see a border inspector this coming Tuesday which is in 4 days. He was referred by his primary care doctor. He is not on diuretics at this time. ROS All systems reviewed and are negative except as per history of present illness. Medications Home Meds Active Scripts Furosemide* (Furosemide*) 40 Mg Tablet, 40 MG PO DAILY, #14 TAB Prov:JO-ANN ANN MD 12/02/18 Spironolactone* (Spironolactone*) 100 Mg Tablet, 100 MG PO DAILY, #14 TAB Prov:JO-ANN ANN MD 12/02/18 Reported Medications Sucralfate* (Carafate*) 1 Gm/10 Ml Susp, 1 GM PO QID, EA 07/07/17 Atorvastatin Calcium (Atorvastatin Calcium) 10 Mg Tablet, 10 MG PO QHS, #30 TAB 07/07/17 Zolpidem Tartrate* (Ambien*) 5 Mg Tablet, 5 MG PO QHS PRN for INSOMNIA, #30 TAB 07/07/17 Levetiracetam* (Keppra*) 1,000 Mg Tablet, 1000 MG PO BID, TAB 07/07/17 Omeprazole* (Omeprazole*) 40 Mg Capsule.dr, 40 MG PO DAILY, #30 CAP 07/07/17 Discontinued Scripts Hydrocodone Bit-Acetaminophen (Hydrocodone Bit-APAP) 5-325MG Tablet, 1 TAB PO Q4H PRN for PAIN LEVEL 6-10, #30 TAB Prov:RAJESH SZYMANSKI 07/08/17 Allergies Allergies: Coded Allergies: vancomycin (Verified Allergy, Intermediate, generalized rashes, 12/02/18) aware PMhx/Soc History of Surgery: Yes (G TUBE LONG TIME AGO) Anesthesia Reaction: No Hx Neurological Disorder: Yes (EPILEPSY) Hx Respiratory Disorders: No Hx Cardiac Disorders: No Hx Psychiatric Problems: No Hx Miscellaneous Medical Probl: Yes (Gastric Ulcer, Osteoporosis, Liver Cirrhosis) Hx Alcohol Use: No Hx Substance Use: No Hx Tobacco Use: Yes (QUIT 15 YRS AGO) Smoking Status: Former smoker FmHx Family History: No diabetes Physical Exam Vitals Vital Signs Date Temp Pulse Resp B/P (MAP) Pulse Ox O2 O2 Flow FiO2 Time Delivery Rate 12/02/18 78 18 132/78 Room Air 17:57 (96) 12/02/18 98.8 101 18 122/74 98 11:06 (90) Physical Exam Const: No acute distress, chronically ill-appearing Head: Atraumatic Eyes: Normal Conjunctiva ENT: Normal External Ears, Nose and Mouth. Neck: Full range of motion. No meningismus. Resp: Clear to auscultation bilaterally Cardio: Regular rate and rhythm, no murmurs Abd: Soft, non tender, distended. Normal bowel sounds Skin: Mild jaundice. No petechiae or rashes. Scattered bruises noted on arms Back: No midline or flank tenderness Ext: No cyanosis, or edema Neur: Awake and alert, normal speech, no facial asymmetry, moving all extremities Psych: Normal Mood and Affect Results 24 hrs Current Medications Medications Dose Sig/Alexandra Start Time Status Last (Trade) Ordered Route PRN Stop Time Admin Dose Reason Admin Ibuprofen 600 mg ONCE ONCE 12/02/18 DC (Motrin) PO 14:30 12/02/18 14:30 Lidocaine 5 ml STK-MED 12/02/18 DC 12/02/18 (Xylocaine ONCE .ROUTE 16:06 16:09 1% (Mpf)) 12/02/18 16:07 Procedures/MDM Initial Nursing notes reviewed. Previous Medical Records requested via the Electronic Health Record. EMERGENCY DEPARTMENT COURSE / MEDICAL DECISION MAKING: Patient is presenting with recurrent ascites. Per chart review, this is his third visit within 2 weeks for paracentesis. Low suspicion for SBP. He is hemodynamically stable. I recommended starting diuretics as he has good follow- up. I ordered a paracentesis which was done with improvement of his symptoms. Prescription for Lasix and spironolactone were given. I recommended blood work be done in 2-4 days as these medications can affect his potassium and kidney function. Patient is agreeable with this plan. He will follow-up with his GI doctor this week to get those tests done. Patient's blood pressure was elevated (>120/80) but appears stable without evidence of hypertensive emergency or urgency. The patient was counseled about the risks of hypertension and urged to pursue outpatient monitoring and therapy within a week with their primary care physician. Departure Diagnosis: Primary Impression: Ascites Ascites type: due to alcoholic cirrhosis Qualified Codes: K70.31 - Alcoholic cirrhosis of liver with ascites Condition: Stable Patient Instructions: Paracentesis Referrals: GERMANIA BACH DO (PCP) Additional Instructions: If you are starting this new medication, it is very important that you follow-up with your primary care doctor or your channel layer for blood work in 2-4 days to check your potassium. These medications can cause dangerous fluctuations in your potassium and need to be monitored closely. JO-ANN ANN MD Dec 02, 2018 16:44
[2018-12-02 17:57] VITALS: BP 132/78; PULSE 78; RESP 18
== END 2018-12-02 17:57 | disposition home or self-care (01) ==
LOC: E/R 10:37
DX: K70.31 Alcoholic cirrhosis of liver with ascites (principal); Z87.891 Personal history of nicotine dependence

== ENCOUNTER 2018-12-07 15:19 | Emergency (ER) | payer OTHER ==
[~2018-12-07] VITALS: Ht 165.1 cm; Wt 75.5 kg
[~2018-12-07 15:19] MED LIST changes: +FURO40TA4 PO; -HYDR-3601 PO; +SPIR100T4 PO
[2018-12-07 15:27] VITALS: Ht 165.1 cm; Wt 75.5 kg
[2018-12-07 17:20] VITALS: BP 91/51; PULSE 84; RESP 17
[2018-12-07 17:48] VITALS: BP 100/61; PULSE 79; RESP 16
[2018-12-07] MEDS ORDERED: LIDOCAINE 1% (MPF) 5 ML VIAL ONE (17:54)
[2018-12-07 18:01] VITALS: BP 109/72; PULSE 89; RESP 20
[2018-12-07] MEDS ORDERED: FOLI-49 PO (18:06)
[2018-12-07] MEDS ORDERED: LURA40TA PO (18:06)
[2018-12-07] MEDS ORDERED: LORA0.5T PO (18:06)
--- NOTE | 2018-12-07 19:17 | ERD ---
ER Documentation Chief Complaint Chief Complaint Complains of abdominal Hx Ascites HPI Patient is a 43-year-old male with cirrhosis who presents for paracentesis. He said that he needs a paracentesis. His last paracentesis was November 27. He said that he gets it about every 5 days. He denies fevers. He has abdominal pain from distention. Upon review of old medical records this patient has had multiple visits to the ER since 2008. He does have a primary doctor. ROS All systems reviewed and are negative except as per history of present illness. Medications Home Meds Active Scripts Furosemide* (Furosemide*) 40 Mg Tablet, 40 MG PO DAILY, #14 TAB Prov:JO-ANN ANN MD 12/02/18 Spironolactone* (Spironolactone*) 100 Mg Tablet, 100 MG PO DAILY, #14 TAB Prov:JO-ANN ANN MD 12/02/18 Reported Medications Lurasidone Hcl (LATUDA) 40 Mg Tablet, 40 MG PO DAILY, #30 TAB 12/07/18 Lorazepam* (Lorazepam*) 0.5 Mg Tablet, 0.5 MG PO HS PRN for ANXIETY, TAB 12/07/18 Folic Acid* (Folic Acid*) 1 Mg Tablet, 1 MG PO DAILY, TAB 12/07/18 Levetiracetam* (Keppra*) 1,000 Mg Tablet, 1000 MG PO BID, TAB 07/07/17 Omeprazole* (Omeprazole*) 40 Mg Capsule.dr, 40 MG PO DAILY, #30 CAP 07/07/17 Discontinued Reported Medications Sucralfate* (Carafate*) 1 Gm/10 Ml Susp, 1 GM PO QID, EA 07/07/17 Atorvastatin Calcium (Atorvastatin Calcium) 10 Mg Tablet, 10 MG PO QHS, #30 TAB 07/07/17 Zolpidem Tartrate* (Ambien*) 5 Mg Tablet, 5 MG PO QHS PRN for INSOMNIA, #30 TAB 07/07/17 Discontinued Scripts Hydrocodone Bit-Acetaminophen (Hydrocodone Bit-APAP) 5-325MG Tablet, 1 TAB PO Q4H PRN for PAIN LEVEL 6-10, #30 TAB Prov:RAJESH SZYMANSKI 07/08/17 Allergies Allergies: Coded Allergies: vancomycin (Verified Allergy, Intermediate, generalized rashes, 12/07/18) MD aware PMhx/Soc History of Surgery: Yes (G TUBE LONG TIME AGO) Anesthesia Reaction: No Hx Neurological Disorder: Yes (EPILEPSY) Hx Respiratory Disorders: No Hx Cardiac Disorders: No Hx Psychiatric Problems: No Hx Miscellaneous Medical Probl: Yes (Gastric Ulcer, Osteoporosis, Liver Cirrhosis) Hx Alcohol Use: No Hx Substance Use: No Hx Tobacco Use: Yes (QUIT 15 YRS AGO) Smoking Status: Former smoker FmHx Family History: diabetes Physical Exam Vitals Vital Signs Date Temp Pulse Resp B/P (MAP) Pulse Ox O2 O2 Flow FiO2 Time Delivery Rate 12/07/18 89 20 109/72 97 Room Air 18:01 (84) 12/07/18 79 16 100/61 98 Room Air 17:48 (74) 12/07/18 84 17 91/51 (64) 95 Room Air 17:20 12/07/18 99.4 90 20 103/65 97 15:27 (78) Physical Exam Const: No acute distress Head: Atraumatic Eyes: Normal Conjunctiva ENT: Normal External Ears, Nose and Mouth. Neck: Full range of motion. No meningismus. Resp: Clear to auscultation bilaterally Cardio: Regular rate and rhythm, no murmurs Abd: Soft, distended abdomen with positive fluid wave Skin: No petechiae or rashes Back: No midline or flank tenderness Ext: No cyanosis, or edema Neur: Awake and alert Psych: Normal Mood and Affect Results 24 hrs Current Medications Medications Dose Sig/Alexandra Start Time Status Last (Trade) Ordered Route PRN Stop Time Admin Dose Reason Admin Lidocaine 5 ml STK-MED 12/07/18 DC (Xylocaine ONCE .ROUTE 17:54 1% (Mpf)) 12/07/18 17:55 Procedures/MDM Patient is a 43-year-old male who presents for paracentesis. Ultrasound-guided paracentesis was performed by radiology. I doubt spontaneous bacterial peritonitis at this time. The patient will be discharged. Departure Diagnosis: Primary Impression: Abdominal pain Abdominal location: generalized Qualified Codes: R10.84 - Generalized abd ominal pain Additional Impression: Ascites Ascites type: other type Qualified Codes: R18.8 - Other ascites Condition: Fair Patient Instructions: Ascites Referrals: GERMANIA BACH DO (PCP) Additional Instructions: Call your primary care doctor TOMORROW for an appointment during the next 1 WEEK.Tell the concrete mixer loader truck mounted that you were referred from this facility.See the doctor sooner or return here if your condition worsens before your appointment time. RODGER MARQUEZ MD Dec 07, 2018 19:17
== END 2018-12-07 18:11 | disposition home or self-care (01) ==
LOC: E/R 15:19
DX: R10.84 Generalized abdominal pain (principal); R18.8 Other ascites; Z87.891 Personal history of nicotine dependence

== ENCOUNTER 2018-12-12 11:16 | Emergency (ER) | payer OTHER ==
[~2018-12-12] VITALS: Wt 69.6 kg
[~2018-12-12 11:16] MED LIST changes: -ATOR10TA65 PO; -CARAS PO; +FOLI-49 PO; +LORA0.5T PO; +LURA40TA PO; -ZOLP5TAB PO
[2018-12-12] MEDS ORDERED: SUCR1TAB56 PO (16:34)
[2018-12-12 16:43] VITALS: BP 100/71; PULSE 75; RESP 13
--- NOTE | 2018-12-12 22:17 | ERD ---
ER Documentation Chief Complaint Chief Complaint HERE FOR PARACENTHESIS HPI 43-year-old male with a history of cirrhosis and frequent paracentesis done here at this facility presenting with complaints of abdominal distention and requ esting paracentesis. I personally saw the patient 2 weeks ago at which time I had prescribed him Lasix and spironolactone. He states that this has been helping him with the fluid buildup. However he still feels some pressure in his lower abdomen at times which is when he decides to come into the ER for paracentesis. He was here a few days ago and had a paracentesis done at that time. He denies any fever, chills, nausea, vomiting, severe abdominal pain, diarrhea or constipation. He is taking the medications I prescribed him. He recently saw an outpatient dynamics ax consultant. He had plans to follow-up outpatient for paracenteses with our radiology department. However since yesterday, his insurance plan changed, he has to go back to another primary care physician to get another referral to dynamics ax consultant and another referral for outpatient paracentesis. ROS All systems reviewed and are negative except as per history of present illness. Medications Home Meds Active Scripts Sucralfate* (Carafate*) 1 Gm Tab, 1 GM PO QID for 30 Days, TAB Prov:JO-ANN DARBY MD 12/12/18 Furosemide* (Furosemide*) 40 Mg Tablet, 40 MG PO DAILY, #14 TAB Prov:JO-ANN DARBY MD 12/02/18 Spironolactone* (Spironolactone*) 100 Mg Tablet, 100 MG PO DAILY, #14 TAB Prov:JO-ANN DARBY MD 12/02/18 Reported Medications Lurasidone Hcl (LATUDA) 40 Mg Tablet, 40 MG PO DAILY, #30 TAB 12/07/18 Lorazepam* (Lorazepam*) 0.5 Mg Tablet, 0.5 MG PO HS PRN for ANXIETY, TAB 12/07/18 Folic Acid* (Folic Acid*) 1 Mg Tablet, 1 MG PO DAILY, TAB 12/07/18 Levetiracetam* (Keppra*) 1,000 Mg Tablet, 1000 MG PO BID, TAB 07/07/17 Omeprazole* (Omeprazole*) 40 Mg Capsule.dr, 40 MG PO DAILY, #30 CAP 07/07/17 Discontinued Reported Medications Sucralfate* (Carafate*) 1 Gm/10 Ml Susp, 1 GM PO QID, EA 07/07/17 Atorvastatin Calcium (Atorvastatin Calcium) 10 Mg Tablet, 10 MG PO QHS, #30 TAB 07/07/17 Zolpidem Tartrate* (Ambien*) 5 Mg Tablet, 5 MG PO QHS PRN for INSOMNIA, #30 TAB 07/07/17 Allergies Allergies: Coded Allergies: vancomycin (Verified Allergy, Intermediate, generalized rashes, 12/12/18) MD aware PMhx/Soc History of Surgery: Yes (G TUBE LONG TIME AGO) Anesthesia Reaction: No Hx Neurological Disorder: Yes (EPILEPSY) Hx Respiratory Disorders: No Hx Cardiac Disorders: No Hx Psychiatric Problems: No Hx Miscellaneous Medical Probl: Yes (Gastric Ulcer, Osteoporosis, Liver Cirrhosis) Hx Alcohol Use: No Hx Substance Use: No Hx Tobacco Use: Yes (QUIT 15 YRS AGO) Smoking Status: Former smoker FmHx Family History: No diabetes Physical Exam Vitals Vital Signs Date Temp Pulse Resp B/P (MAP) Pulse Ox O2 O2 Flow FiO2 Time Delivery Rate 12/12/18 98.4 75 13 100/71 96 Room Air 16:43 (81) 12/12/18 84 17 111/77 97 Room Air 15:04 (88) 12/12/18 98.1 65 18 124/63 99 11:20 (83) Physical Exam Const: No acute distress Head: Atraumatic Eyes: Normal Conjunctiva ENT: Normal External Ears, Nose and Mouth. Neck: Full range of motion. No meningismus. Resp: Clear to auscultation bilaterally Cardio: Regular rate and rhythm, no murmurs Abd: Soft, non tender, mildly distended. No rebound or guarding. No hernias. Normal bowel sounds Skin: Jaundiced. No petechiae or rashes Back: No midline or flank tenderness Ext: No cyanosis, or edema Neur: Awake and alert, normal speech, moving all extremities Psych: Normal Mood and Affect Result Diagram: 12/12/18 1516 12/12/18 1516 Results 24 hrs Laboratory Tests Test 12/12/18 15:16 White Blood Count 7.4 10^3/ul Red Blood Count 3.14 10^6/ul Hemoglobin 11.2 g/dl Hematocrit 32.0 % Mean Corpuscular Volume 101.9 fl Mean Corpuscular Hemoglobin 35.7 pg Mean Corpuscular Hemoglobin Concent 35.0 g/dl Red Cell Distribution Width 16.8 % Platelet Count 121 10^3/UL Mean Platelet Volume 9.5 fl Immature Granulocytes % 0.400 % Neutrophils % 60.0 % Lymphocytes % 20.3 % Monocytes % 16.3 % Eosinophils % 2.2 % Basophils % 0.8 % Nucleated Red Blood Cells % 0.0 /100WBC Immature Granulocytes # 0.030 10^3/ul Neutrophils # 4.4 10^3/ul Lymphocytes # 1.5 10^3/ul Monocytes # 1.2 10^3/ul Eosinophils # 0.2 10^3/ul Basophils # 0.1 10^3/ul Nucleated Red Blood Cells # 0.0 10^3/ul Prothrombin Time 17.6 Sec Prothrombin Time Ratio 1.4 INR International Normalized Ratio 1.44 Activated Partial Thromboplast Time 35.5 Sec Sodium Level 130 mmol/L Potassium Level 3.7 mmol/L Chloride Level 93 mmol/L Carbon Dioxide Level 29 mmol/L Anion Gap 8 Blood Urea Nitrogen 8 mg/dl Creatinine 0.50 mg/dl Est Glomerular Filtrat Rate mL/min > 60 mL/min Glucose Level 99 mg/dl Calcium Level 8.3 mg/dl Total Bilirubin 1.8 mg/dl Direct Bilirubin 0.00 mg/dl Indirect Bilirubin 1.8 mg/dl Aspartate Amino Transf (AST/SGOT) 75 IU/L Alanine Aminotransferase (ALT/SGPT) 46 IU/L Alkaline Phosphatase 186 IU/L Total Protein 6.6 g/dl Albumin 3.0 g/dl Globulin 3.60 g/dl Albumin/Globulin Ratio 0.83 Procedures/MDM EMERGENT LABS AND DIAGNOSTIC STUDIES: Lab Results above were reviewed and interpreted by me. CBC: Chronic anemia, thrombocytopenia CMP: Hyponatremia, hypochloremia, secondary to fluid overload. No significant electrolyte abnormalities, renal failure. Coags unremarkable Radiology Results as interpreted by Radiology below were reviewed by Slick Darby, Ultrasound evaluation for paracentesis done, patient did not have enough fluid to safely tap Initial Nursing notes reviewed. Previous Medical Records requested via the Electronic Health Record. EMERGENCY DEPARTMENT COURSE / MEDICAL DECISION MAKING: Patient is presenting with abdominal distention and pressure. Vitals are unremarkable. Labs did not show any acute abnormalities, only chronic abnormali ties noted. On exam he does not have any peritoneal signs. Doubt SBP. He does not have enough ascites to safely be tapped. Advised the patient continue with his current medication regimen. He asked for refill of his sucralfate, which I have provided him. Advised to follow-up outpatient with PCP for another GI referral. Return precautions were discussed. Patient's blood pressure was elevated (>120/80) but appears stable without evidence of hypertensive emergency or urgency. The patient was counseled about the risks of hypertension and urged to pursue outpatient monitoring and therapy within a week with their primary care physician. Departure Diagnosis: Primary Impression: Abdominal distension Additional Impression: Ascites Ascites type: other type Qualified Codes: R18.8 - Other ascites Condition: Stable Patient Instructions: Ascites JO-ANN DARBY MD Dec 12, 2018 22:17
== END 2018-12-12 16:43 | disposition home or self-care (01) ==
LOC: E/R 11:16
DX: R14.0 Abdominal distension (gaseous) (principal); R18.8 Other ascites; R10.9 Unspecified abdominal pain; Z76.0 Encounter for issue of repeat prescription; Z87.891 Personal history of nicotine dependence
CPT/HCPCS: 76705; 80053; 85025; 85610; 85730

== ENCOUNTER 2018-12-29 09:48 | Emergency (ER) | payer OTHER ==
[~2018-12-29] VITALS: Wt 71.0 kg
[~2018-12-29 09:48] MED LIST changes: +SUCR1TAB56 PO
--- NOTE | 2018-12-29 11:13 | ERD ---
ER Documentation Chief Complaint Chief Complaint PARACENTISIS; LAST ONE DONE ABOUT 3 WEEKS AGO PER PT HPI This is a very pleasant 43-year-old male who has a history of alcohol induced liver cirrhosis with ascites. The patient indicated his paracentesis was 3 weeks prior to arrival. Since that time he has had worsening abdominal distention but denies any abdominal pain. He has mild dyspnea. He has no fevers or shaking or chills. He denies any hemoptysis hematemesis or melanotic stools. The patient indicates he has not consumed any alcohol for over 1 month. ROS All systems reviewed and are negative except as per history of present illness. Medications Home Meds Active Scripts Sucralfate* (Carafate*) 1 Gm Tab, 1 GM PO QID for 30 Days, TAB Prov:JO-ANN ANN MD 12/12/18 Furosemide* (Furosemide*) 40 Mg Tablet, 40 MG PO DAILY, #14 TAB Prov:JO-ANN ANN MD 12/02/18 Spironolactone* (Spironolactone*) 100 Mg Tablet, 100 MG PO DAILY, #14 TAB Prov:JO-ANN ANN MD 12/02/18 Reported Medications Lurasidone Hcl (LATUDA) 40 Mg Tablet, 40 MG PO DAILY, #30 TAB 12/07/18 Lorazepam* (Lorazepam*) 0.5 Mg Tablet, 0.5 MG PO HS PRN for ANXIETY, TAB 12/07/18 Folic Acid* (Folic Acid*) 1 Mg Tablet, 1 MG PO DAILY, TAB 12/07/18 Levetiracetam* (Keppra*) 1,000 Mg Tablet, 1000 MG PO BID, TAB 07/07/17 Omeprazole* (Omeprazole*) 40 Mg Capsule.dr, 40 MG PO DAILY, #30 CAP 07/07/17 Allergies Allergies: Coded Allergies: vancomycin (Verified Allergy, Intermediate, generalized rashes, 12/12/18) aware PMhx/Soc History of Surgery: Yes (G TUBE LONG TIME AGO) Anesthesia Reaction: No Hx Neurological Disorder: Yes (EPILEPSY) Hx Respiratory Disorders: No Hx Cardiac Disorders: No Hx Psychiatric Problems: No Hx Miscellaneous Medical Probl: Yes (Gastric Ulcer, Osteoporosis, Liver Cirrhosis) Hx Alcohol Use: No Hx Substance Use: No Hx Tobacco Use: Yes (QUIT 15 YRS AGO) Physical Exam Vitals Vital Signs Date Temp Pulse Resp B/P (MAP) Pulse Ox O2 O2 Flow FiO2 Time Delivery Rate 12/29/18 98.1 71 18 106/55 99 09:51 (72) Physical Exam Constitutional:Well-developed. Well-nourished. Respiratory: Not using accessory muscles of respiration.Lungs were clear to auscultation bilaterally. No rhonchi. No rales. No wheezing. Cardiovascular: Regular rate regular rhythm.No murmurs. No rubs were appreciated.S1, S2 normal. Distal pulses are palpable 2+ bilaterally. GI: Abdomen was soft. Nontender. Tense abdominal ascites with positive fluid thrill. No pulsatile abdominal masses or bruits. No rebound. No guarding. Bowel sounds were present and normal. Muscle skeletal: Full range of motion of both the upper and lower extremities bilaterally.Normal muscle tone.No assymetrical calf tenderness or swelling. Skin: No petechia, no purpura. No lesions on the palms or the soles of the feet. No maculopapular rash. NEURO: Patient was alert, awake, orientated x3.No facial droop. Gait observed and normal with no ataxia.Speech had regular rate and rhythm. No focal neuro logical deficits. Procedures/MDM This is a 43-year-old male with a known history of ascites presented to the emergency department for therapeutic paracentesis. I do not feel is necessary to obtain in the ancillary laboratory work is my clinical suspicion was low for spontaneous bacterial peritonitis. This was performed by the radiologist and 5 L was removed without any difficulty. The patient tolerated the procedure well. The patient was discharged home in fair condition. They were instructed to return to the emergency department at any time if there was any worsening of their condition. The patient stated they would follow up with their PCP in the next 24-48 hours to initiate a suitable medication regimen under the care of their PCP as well as to allow their PCP to monitor any drug reactions. The patient was discharged home with prescriptions after they gave informed consent to the new medication. They were also fully informed by myself on the adverse effects and adverse drug interactions in order to provide adequate safeguards to prevent possible adverse reactions to medications. Departure Diagnosis: Primary Impression: Ascites Ascites type: other type Qualified Codes: R18.8 - Other ascites Condition: LAURYN Soto MD Dec 29, 2018 11:13
[2018-12-29 11:25] VITALS: BP 96/54; PULSE 79; RESP 20
[2018-12-29 12:10] VITALS: BP 90/58; PULSE 75; RESP 17
[2018-12-29 12:29] VITALS: BP 97/60; PULSE 69; RESP 18
== END 2018-12-29 12:31 | disposition home or self-care (01) ==
LOC: E/R 09:48
DX: R18.8 Other ascites (principal); Z87.891 Personal history of nicotine dependence

== ENCOUNTER 2019-01-29 07:56 | Emergency (ER) | payer OTHER ==
[~2019-01-29] VITALS: Ht 175.3 cm; Wt 79.7 kg
[2019-01-29 07:59] VITALS: Ht 175.3 cm; Wt 79.7 kg
--- NOTE | 2019-01-29 09:07 | ERD ---
ER Documentation Chief Complaint Chief Complaint pt here for paracentesis HPI 43-year-old man with a history of alcoholic cirrhosis and chronic recurrent ascites comes here for recent abdominal distention and requesting paracentesis. He denies fevers or chills, no chest pain or shortness of breath, no blood per rectum or melena. ROS All systems reviewed and are negative except as per history of present illness. Medications Home Meds Active Scripts Furosemide* (Furosemide*) 40 Mg Tablet, 40 MG PO DAILY, #14 TAB Prov:JO-ANN ANN MD 12/02/18 Reported Medications Atorvastatin Calcium (Atorvastatin Calcium) 10 Mg Tablet, 5 MG PO QHS, #30 TAB 01/29/19 Pantoprazole* (Protonix*) 40 Mg Tablet.dr, 40 MG PO DAILY, TAB 01/29/19 Propranolol Hcl* (Propranolol Hcl*) 10 Mg Tablet, 1 TAB ORAL TID 01/29/19 Discontinued Reported Medications Lurasidone Hcl (LATUDA) 40 Mg Tablet, 40 MG PO DAILY, #30 TAB 12/07/18 Lorazepam* (Lorazepam*) 0.5 Mg Tablet, 0.5 MG PO HS PRN for ANXIETY, TAB 12/07/18 Folic Acid* (Folic Acid*) 1 Mg Tablet, 1 MG PO DAILY, TAB 12/07/18 Levetiracetam* (Keppra*) 1,000 Mg Tablet, 1000 MG PO BID, TAB 07/07/17 Omeprazole* (Omeprazole*) 40 Mg Capsule.dr, 40 MG PO DAILY, #30 CAP 07/07/17 Discontinued Scripts Sucralfate* (Carafate*) 1 Gm Tab, 1 GM PO QID for 30 Days, TAB Prov:JO-ANN ANN MD 12/12/18 Spironolactone* (Spironolactone*) 100 Mg Tablet, 100 MG PO DAILY, #14 TAB Prov:JO-ANN ANN MD 12/02/18 Allergies Allergies: Coded Allergies: vancomycin (Verified Allergy, Intermediate, generalized rashes, 01/29/19) aware PMhx/Soc Alcohol induced liver cirrhosis with recurrent ascites, gastritis, seizure disorder History of Surgery: Yes (G TUBE LONG TIME AGO) Anesthesia Reaction: No Hx Neurological Disorder: Yes (EPILEPSY) Hx Respiratory Disorders: No Hx Cardiac Disorders: No Hx Psychiatric Problems: No Hx Miscellaneous Medical Probl: Yes (Gastric Ulcer, Osteoporosis, Liver Cirrhosis) Hx Alcohol Use: No Hx Substance Use: No Hx Tobacco Use: Yes (QUIT 15 YRS AGO) FmHx Family History: No diabetes Physical Exam Vitals Vital Signs Date Temp Pulse Resp B/P (MAP) Pulse Ox O2 O2 Flow FiO2 Time Delivery Rate 01/29/19 97.6 62 16 111/74 99 Room Air 11:09 (86) 01/29/19 97.6 66 18 104/71 99 07:59 (82) Physical Exam Const: No acute distress Resp: Clear to auscultation bilaterally Cardio: Regular rate and rhythm, no murmurs Abd: Soft nontender protuberant abdomen with ascites, no guarding or rigidity Skin: No petechiae or rashes Psych: Normal Mood and Affect Result Diagram: 01/29/1993901/29/1940 Results 24 hrs Laboratory Tests Test 01/29/19 09:40 White Blood Count 4.6 10^3/ul Red Blood Count 2.84 10^6/ul Hemoglobin 10.2 g/dl Hematocrit 29.4 % Mean Corpuscular Volume 103.5 fl Mean Corpuscular Hemoglobin 35.9 pg Mean Corpuscular Hemoglobin Concent 34.7 g/dl Red Cell Distribution Width 14.4 % Platelet Count 93 10^3/UL Mean Platelet Volume 9.6 fl Immature Granulocytes % 0.200 % Neutrophils % 46.5 % Lymphocytes % 27.5 % Monocytes % 22.3 % Eosinophils % 2.6 % Basophils % 0.9 % Nucleated Red Blood Cells % 0.0 /100WBC Immature Granulocytes # 0.010 10^3/ul Neutrophils # 2.1 10^3/ul Lymphocytes # 1.3 10^3/ul Monocytes # 1.0 10^3/ul Eosinophils # 0.1 10^3/ul Basophils # 0.0 10^3/ul Nucleated Red Blood Cells # 0.0 10^3/ul Prothrombin Time 17.7 Sec Prothrombin Time Ratio 1.4 INR International Normalized Ratio 1.45 Activated Partial Thromboplast Time 36.5 Sec Sodium Level 130 mmol/L Potassium Level 4.1 mmol/L Chloride Level 98 mmol/L Carbon Dioxide Level 28 mmol/L Anion Gap 4 Blood Urea Nitrogen 6 mg/dl Creatinine 0.59 mg/dl Est Glomerular Filtrat Rate mL/min > 60 mL/min Glucose Level 76 mg/dl Calcium Level 8.4 mg/dl Total Bilirubin 1.9 mg/dl Direct Bilirubin 0.00 mg/dl Indirect Bilirubin 1.9 mg/dl Aspartate Amino Transf (AST/SGOT) 46 IU/L Alanine Aminotransferase (ALT/SGPT) 24 IU/L Alkaline Phosphatase 185 IU/L Total Protein 6.3 g/dl Albumin 2.9 g/dl Globulin 3.40 g/dl Albumin/Globulin Ratio 0.85 Lipase 399 U/L Procedures/MDM CBC revealed chronic expected abnormalities electrolytes unremarkable, liver function tests unremarkable Radiology department performed ultrasound guided paracentesis, 5 L removed. Patient feels much better at this time, and vital signs are normal, symptoms have improved. I did give strict instructions to return to the ED if symptoms continue or worsen, patient will otherwise follow-up with primary care physician. Patient understood instructions and agreed to plan. Disclaimer: Inadvertent spelling and grammatical errors are likely due to EHR/d ictation software use and do not reflect on the overall quality of patient care. Also, please note that the electronic time recorded on this note does not necessarily reflect the actual time of the patient encounter. Departure Diagnosis: Primary Impression: Ascites Ascites type: due to alcoholic cirrhosis Qualified Codes: K70.31 - Alcoholic cirrhosis of liver with ascites Condition: CELSO Eduardo MD January 29, 2019 09:07
[2019-01-29] MEDS ORDERED: ATOR10TA65 PO (10:09)
[2019-01-29] MEDS ORDERED: PROP10TA6 ORAL (10:09)
[2019-01-29] MEDS ORDERED: PANT40TA3 PO (10:09)
[2019-01-29 11:09] VITALS: BP 111/74; PULSE 62; RESP 16
== END 2019-01-29 11:09 | disposition home or self-care (01) ==
LOC: E/R 07:56
DX: K70.31 Alcoholic cirrhosis of liver with ascites (principal)
CPT/HCPCS: 76705; 80053; 83690; 85025; 85610; 85730